=== PATIENT | female | born 1990 | race Caucasian/White ===

== ENCOUNTER 2017-08-21 13:48 | Emergency (ER) | payer OTHER ==
--- NOTE | 2017-08-21 14:39 | ER Document Report ---
HPI - HPI Pain Level: 1
--- NOTE | 2017-08-21 15:08 | ER Document Report ---
HPI - HPI Patient complains to provider of: hit head on friday Onset: Other Onset/Duration: Sudden Pain Level: 1 Context: 27-year-old female was hit in the right side of her head by a wooden look at work on Friday at 9 am at [email or web address]. She did not want to come to be checked better work made her come. She thinks she has another concussion because she has the same symptoms as when she had a concussion in high school. The vision in her right eye blanked out for just a second after she was hit on the right side of top of her head and she had nausea when she would eat and headache, no LOC. She called out of work for 2 days and has been sleeping a lot. She has been taking Excedrin PM. Her strange symptoms is that she feels like sinus is draining on that side. Tested visual acuity 20/25 right eye, 20/ 25 left eye. Associated Symptoms: None Exacerbated by: Deep breathing Relieved by: Denies Similar symptoms previously: Yes Recently seen / treated by doctor: No - ROS ROS below otherwise negative: Yes Systems Reviewed and Negative: Yes All other systems reviewed and negative Past Medical History - General Information source: Patient - Social History Smoking Status: Never Smoker Frequency of alcohol use: None Drug Abuse: None Lives with: Family Family History: Reviewed & Not Pertinent Other: High school concussion Surgical Hx: Negative Vertical Provider Document - CONSTITUTIONAL Agree With Documented VS: Yes Exam Limitations: No Limitations - HEENT HEENT: Atraumatic, Normocephalic, PERRLA Notes: No hernandez sign, no periorbital ecchymosis, no rhinorrhea. Mild tender inferior and superior orbit no swelling. No hemotympanum - NECK Neck: Supple - Nontender - RESPIRATORY Respiratory: Breath Sounds Normal, No Respiratory Distress O2 Sat by Pulse Oximetry: 100 - CARDIOVASCULAR Cardiovascular: Regular Rate, Regular Rhythm - MUSCULOSKELETAL/EXTREMETIES Musculoskeletal/Extremeties: DAVID SNOW - NEURO Level of Consciousness: Awake, Alert, Appropriate Motor/Sensory: No Motor Deficit, No Sensory Deficit - DERM Integumentary: Warm, Dry, No Rash Course - Re-evaluation Re-evalutation: 08/21/17 15:[address] adair no imaging needed. - Vital Signs Vital signs: Temp Pulse Resp BP Pulse Ox 97.6 F 112 H 120/91 H 100 08/21/17 13:54 08/21/17 13:54 08/21/17 13:54 08/21/17 13:54 Discharge - Discharge Clinical Impression: Headache Head injury Qualifiers: Encounter type: initial encounter Qualified Code(s): S09.90XA - Unspecified injury of head, initial encounter Concussion Qualifiers: Encounter type: initial encounter Loss of consciousness presence/duration: without LOC Qualified Code(s): S06.0X0A - Concussion without loss of consciousness, initial encounter Condition: Good Instructions: Acetaminophen, Headache ([facility]), Head Injury Precautions ([facility]), Neurologist Additional Instructions: see neurologist if symptoms persists no activity that could cause head injury to er if worse Forms: Return to Work
[2017-08-21 15:25] VITALS: BP 118/68
== END 2017-08-21 15:22 | disposition home or self-care (01) ==
LOC: ER 13:48
DX: S06.0X0A Concussion without loss of consciousness, initial encounter (principal); W20.8XXA Other cause of strike by thrown, projected or falling object, initial encounter; Y92.512 Supermarket, store or market as the place of occurrence of the external cause; Y99.0 Civilian activity done for income or pay
CPT/HCPCS: 99283